=== PATIENT | male | born 1960 | race Caucasian/White ===

== ENCOUNTER 2019-04-03 18:29 | Inpatient (IN) | payer OTHER ==
[2019-04-03 19:16] VITALS: BMI 27.3
--- NOTE | 2019-04-03 20:54 | HP ---
COWS - Scale Resting Pulse: 0= [place] 80 or Below Sweatin= Beads of Sweat on Face Restless Observation: 1= Difficult to Sit Still Pupil Size: 0= Normal to Room Light Bone or Joint Aches: 4=Acute Joint/Muscle Pain Runny Nose/ Eye Tearin= None GI Upset > 30mins: 0= None Tremor Observation: 2= Slight Tremor Visible Yawning Observation: 1= 1-2x During Session Anxiety or Irritability: 2=Irritable/Anxious Goose Flesh Skin: 0=Smooth Skin COWS Score: 13 CIWA Score - Admission Criteria OASAS Guidelines: Admission for Medically Managed Detox: Requires at least one of the followin. CIWA greater than 12 2. Seizures within the past 24 hours 3. Delirium tremens within the past 24 hours 4. Hallucinations within the past 24 hours 5. Acute intervention needed for co occurring medical disorder 6. Acute intervention needed for co occurring psychiatric disorder 7. Severe withdrawal that cannot be handled at a lower level of care (continued vomiting, continued diarrhea, abnormal vital signs) requiring intravenous medication and/or fluids 8. Admitting History and Physical - Admission Chief Complaint: "my parole office requested that i go for a detox". History of Present Illness: A 58year old male who denies any medical history presents here today for heroin detox as requested by his recruitment officer. Pt states, he uses 1bundle of heroin daily by inhalation and last use 04/03/19. Pt reports that his last detox was over 6years ago. Pt's ekg is abnornal, to be repeated in AM. History Source: Patient Limitations to Obtaining History: No Limitations - Smoking History Smoking history: Current some day smoker Have you smoked in the past 12 months: Yes Aproximately how many cigarettes per day: 10 - Alcohol/Substance Use Hx Alcohol Use: No History of Substance Use: reports: Cocaine, Heroin - Social History Usual Living Arrangement: Yes: Other (Lives with mum) Do you think of yourself as: Straight/Heterosexual ADL: Independent History of Recent Travel: No Admission ROS [facility] Allergies/Adverse Reactions: Allergies Allergy/AdvReac Type Severity Reaction Status Date / Time No Known Allergies Allergy Verified 04/03/19 19:03 Exam Limitations: No Limitations - Ebola screening Have you traveled outside of the country in the last 21 days: No (N) Have you had contact with anyone from an Ebola affected area: No Have you been sick,other than usual withdrawal symptoms: No Do you have a fever: No - Review of Systems Constitutional: Night Sweats EENT: reports: Cataracts, Blurred Vision Respiratory: reports: No Symptoms reported Cardiac: reports: No Symptoms Reported GI: reports: No Symptoms Reported : reports: No Symptoms Reported, Burning, Dysuria, Urgency Musculoskeletal: reports: No Symptoms Reported Integumentary: reports: No Symptoms Reported Neuro: reports: Tremors Endocrine: reports: No Symptoms Reported Hematology: reports: No Symptoms Reported Psychiatric: reports: Judgement Intact, Mood/Affect Appropiate Other Systems: Reviewed and Negative Patient History - Patient Medical History Hx Anemia: No Hx Asthma: No Hx Chronic Obstructive Pulmonary Disease (COPD): No Hx Cancer: No Hx Cardiac Disorders: No Hx Congestive Heart Failure: No Hx Hypertension: No Hx Hypercholesterolemia: No Hx Pacemaker: No HX Cerebrovascular Accident: No Hx Seizures: No Hx Dementia: No Hx Diabetes: No Hx Gastrointestinal Disorders: No Hx Liver Disease: No Hx Genitourinary Disorders: No Hx Sexually Transmitted Disorders: No Hx Renal Disease (ESRD): No Hx Thyroid Disease: No Hx Human Immunodeficiency Virus (HIV): No Hx Hepatitis C: No Hx Depression: No Hx Suicide Attempt: No Hx Bipolar Disorder: No Hx Schizophrenia: No - Patient Surgical History Past Surgical History: No - PPD History Previous Implant?: Yes (pt states he ppd was positve 10years ago, can't recall last chest xray) Documented Results: Positive w/o proof Implanted On Prior R Admission?: No PPD to be Administered?: No - Smoking Cessation Smoking history: Current some day smoker Have you smoked in the past 12 months: Yes Aproximately how many cigarettes per day: 10 Hx Chewing Tobacco Use: No Initiated information on smoking cessation: Yes 'Breaking Loose' booklet given: 04/03/19 - Substances abused Heroin Substance route: Inhalation Frequency: Daily Amount used: 1 bundle Age of first use: 19 Date of last use: 04/03/19 Admission Physical Exam BHS - Vital Signs Vital Signs: Vital Signs - 24 hr 04/03/19 04/03/19 18:58 20:31 Temperature 97.8 F 97.8 F Pulse Rate 59 L 59 L Respiratory 20 20 Rate Blood Pressure 115/63 115/63 - Physical General Appearance: Yes: Within Normal Limits, Tremorous, Sweating, Anxious HEENTM: Yes: EOMI, Normocephalic, Normal Voice, Pharynx Normal, Tm's normal Respiratory: Yes: Chest Non-Tender, Lungs Clear, Normal Breath Sounds, No Respiratory Distress Neck: Yes: No masses,lesions,Nodules, Supple, Trachea in good position Breast: Yes: Within Normal Limits Cardiology: Yes: Regular Rhythm, Regular Rate, S1, S2 Abdominal: Yes: Normal Bowel Sounds, Non Tender, Soft Genitourinary: Yes: Within Normal Limits Back: Yes: Normal Inspection Musculoskeletal: Yes: Within Normal Limits Extremities: Yes: Tremors Neurological: Yes: Alert, Normal Mood/Affect, Normal Response Integumentary: Yes: Dry, Warm Lymphatic: Yes: Within Normal Limits - Diagnostic (1) Heroin use disorder, mild, abuse Status: Chronic Cleared for Admission [facility] - Detox or Rehab [facility] Level of Care: Medically Managed Detox Regimen/Protocol: Methadone Claeared for Rehab Admission: No Breathalyzer - Breathalyzer Breathalyzer: 0 Urine Drug Screen - Test Device Lot number: [id number] Expiration date: 10/24/20 - Control Is test valid?: Yes - Results Drug screen NEGATIVE: Yes Urine drug screen results: THC-Marijuana, [place]-Cocaine, FEN-Fentanyl, MOP-Opiates , MTD-Methadone Inpatient Rehab Admission - Rehab Decision to Admit Inpatient rehab admission?: No
[2019-04-03] MEDS ORDERED: METHOCARBAMOL 500 MG TABLET PO PRN (21:05)
[2019-04-03] MEDS ORDERED: IBUPROFEN 400 MG TABLET (FP) PO PRN ×2 (21:05→21:22)
[2019-04-03] MEDS ORDERED: hydrOXYzine PAMOATE 25 MG CAPSULE (FP) PO PRN ×2 (21:05→21:22)
[2019-04-03] MEDS ORDERED: cloNIDine HCL 0.1 MG TABLET PO PRN ×2 (21:05→21:24)
[2019-04-03] MEDS ORDERED: MENTHOL/PHENOL 1 EACH UD MM PRN ×2 (21:05→21:22)
[2019-04-03] MEDS ORDERED: ACETAMINOPHEN 325 MG TABLET (FP) PO PRN ×4 (21:05→21:22)
[2019-04-03] MEDS ORDERED: MELATONIN 5 MG TABLETS PO PRN ×2 (21:05→21:22)
[2019-04-03] MEDS ORDERED: MAGNESIUM CITRATE 300 ML BOTTLE PO PRN ×2 (21:05→21:22)
[2019-04-03] MEDS ORDERED: MAGNESIUM HYDROX 2400MG/30ML ORAL SUSPENSION 30 ML CUP PO PRN ×2 (21:05→21:22)
[2019-04-03] MEDS ORDERED: METHADONE HCL 10 MG TABLET (FOR DETOX USE ONLY) PO ONE ×2 (21:05→21:24)
[2019-04-03] MEDS ORDERED: MAG HYDROX/AL HYDROX/SIMETH 30 ML UNIT-DOSE CUP PO PRN ×2 (21:05→21:22)
[2019-04-03] MEDS ORDERED: BISMUTH SUBSALICYLATE 524 MG/30 ML UD PO PRN ×2 (21:05→21:22)
[2019-04-03] MEDS: THIAMINE HCL 100 MG TABLET (FP) PO SCH (21:48)
[2019-04-03] MEDS ORDERED: THIAMINE HCL 100 MG TABLET (FP) PO SCH (22:00)
[2019-04-04 09:44] LABS: HEMATOCRIT 40.6 % (35.4-49); HEMOGLOBIN 13.1 GM/dL (11.7-16.9); MCH 27.6 pg (25.7-33.7); MCHC 32.2 g/dl (32.0-35.9); MEAN CELL VOLUME 85.6 fl (80-96); MEAN PLT VOLUME 8.5 fl (7.5-11.1); PLATELET COUNT 209 K/MM3 (134-434); RBC 4.75 M/mm3 (4.00-5.60); RDW 14.4 % (11.9-15.9); WHITE BLOOD COUNT 6.4 K/mm3 (4.0-10.0)
[2019-04-04] MEDS ORDERED: NICOTINE 14 MG/24 HOURS TOPICAL PATCH TD SCH (10:00)
[2019-04-04] MEDS ORDERED: METHADONE HCL 5 MG TABLET (FOR DETOX USE ONLY) PO ONE ×2 (10:00)
[2019-04-04] MEDS ORDERED: PRENATAL VITAMINS W/ FOLIC ACID TABLET (FP) PO SCH (10:00)
[2019-04-04 10:05] LABS: ALBUMIN 3.3 g/dl (3.4-5.0); BILIRUBIN,TOTAL 0.5 mg/dL (0.2-1); CALCIUM 8.5 mg/dL (8.5-10.1); POTASSIUM 4.8 mmol/L (3.5-5.1); TOT PROT 6.6 g/dl (6.4-8.2)
[2019-04-04] MEDS ORDERED: P-EPHED 60MG/TRIPROLIDI 2.5MG TABLET PO PRN (10:07)
[2019-04-04] MEDS ORDERED: SODIUM CHLORIDE NASAL SPRAY 44 ML BOTTLE NS PRN (10:08)
[2019-04-04] MEDS: PRENATAL VITAMINS W/ FOLIC ACID TABLET (FP) PO SCH (10:19)
[2019-04-04] MEDS: NICOTINE 14 MG/24 HOURS TOPICAL PATCH TD SCH (10:20)
--- NOTE | 2019-04-04 10:20 | PN ---
[facility]HS COWS - Scale Resting Pulse: 0= [place] 80 or Below Sweatin=Flushed/Facial Moisture Restless Observation: 1= Difficult to Sit Still Pupil Size: 0= Normal to Room Light Bone or Joint Aches: 2= Severe Diffuse Aches Runny Nose/ Eye Tearin= Runny Nose/Eyes GI Upset > 30mins: 0= None Tremor Observation of Outstretched Hands: 1= Tremor [place], Not Seen Yawning Observation: 2= >3x During Session Anxiety or Irritability: 2=Irritable/Anxious Goose Flesh Skin: 0=Smooth Skin COWS Score: 12 S Progress Note (SOAP) Subjective: nasal congestions teary eyes body aches sweats chills irritable Objective: 04/04/19 10:20 Vital Signs Temperature 97.7 F 04/04/19 09:18 Pulse Rate 54 L 04/04/19 09:18 Respiratory Rate 18 04/04/19 09:18 Blood Pressure 119/81 04/04/19 09:18 O2 Sat by Pulse Oximetry (%) Laboratory Tests 04/04/19 04/04/19 08:00 08:00 WBC 6.4 RBC 4.75 Hgb 13.1 Hct 40.6 MCV 85.6 MCH 27.6 MCHC 32.2 RDW 14.4 Plt Count 209 MPV 8.5 Sodium 140 Potassium 4.8 Chloride 107 Carbon Dioxide 28 Anion Gap 5 L BUN 18.0 Creatinine 1.0 Est GFR (CKD-EPI)AfAm 95.06 Est GFR (CKD-EPI)NonAf 82.02 Random Glucose 77 Calcium 8.5 Total Bilirubin 0.5 AST 16 ALT 18 Alkaline Phosphatase 65 Total Protein 6.6 Albumin 3.3 L aaox3 ambulating no acute distress Assessment: 04/04/19 10:21 withdrawals Plan: continue detox ocean spray prn actifed prn
--- NOTE | 2019-04-04 11:14 | EKG ---
Test Reason : Blood Pressure : / mmHG Vent. Rate : 053 BPM Atrial Rate : 053 BPM P-R Int : 212 ms QRS Dur : 088 ms QT Int : 430 ms P-R-T Axes : 064 075 070 degrees QTc Int : 403 ms SINUS BRADYCARDIA WITH 1ST DEGREE A-V BLOCK OTHERWISE NORMAL ECG NO PREVIOUS ECGS AVAILABLE Confirmed by CELINA FIORE MD ([id number]) on 04/04/2019 11:13:32 AM Referred By: João Ingram Confirmed By:CELINA FIORE MD
--- NOTE | 2019-04-04 11:14 | EKG ---
Test Reason : Blood Pressure : / mmHG Vent. Rate : 046 BPM Atrial Rate : 046 BPM P-R Int : 206 ms QRS Dur : 078 ms QT Int : 450 ms P-R-T Axes : 070 067 058 degrees QTc Int : 393 ms SINUS BRADYCARDIA OTHERWISE NORMAL ECG WHEN COMPARED WITH ECG OF 03-APR-2019 22:17, NO SIGNIFICANT CHANGE WAS FOUND Confirmed by CELINA FIORE MD ([id number]) on 04/04/2019 11:13:51 AM Referred By: João Ingram Confirmed By:CELINA FIORE MD
[2019-04-04] MEDS: METHOCARBAMOL 500 MG TABLET PO PRN (16:44)
[2019-04-04] MEDS: THIAMINE HCL 100 MG TABLET (FP) PO SCH (21:54)
[2019-04-05] MEDS: NICOTINE 14 MG/24 HOURS TOPICAL PATCH TD SCH (09:42)
[2019-04-05] MEDS: PRENATAL VITAMINS W/ FOLIC ACID TABLET (FP) PO SCH (09:43)
[2019-04-05] MEDS ORDERED: METHADONE HCL 10 MG TABLET (FOR DETOX USE ONLY) PO ONE ×2 (10:00)
[2019-04-05] MEDS ORDERED: IBUPROFEN 600 MG TABLET (FP) PO PRN (10:10)
--- NOTE | 2019-04-05 10:12 | PN ---
BHS COWS - Scale Resting Pulse: 0= [place] 80 or Below Sweatin= Chills/Flushing Restless Observation: 1= Difficult to Sit Still Pupil Size: 0= Normal to Room Light Bone or Joint Aches: 2= Severe Diffuse Aches Runny Nose/ Eye Tearin= None GI Upset > 30mins: 0= None Tremor Observation of Outstretched Hands: 0= None Yawning Observation: 1= 1-2x During Session Anxiety or Irritability: 1=Feels Anxious/Irritable Goose Flesh Skin: 0=Smooth Skin COWS Score: 6 BHS Progress Note (SOAP) Subjective: back pain sweats Objective: 04/05/19 10:12 Vital Signs Temperature 97.3 F L 04/05/19 09:31 Pulse Rate 52 L 04/05/19 09:31 Respiratory Rate 18 04/05/19 09:31 Blood Pressure 150/84 04/05/19 09:31 O2 Sat by Pulse Oximetry (%) Laboratory Tests 04/04/19 04/04/19 04/04/19 08:00 08:00 08:00 WBC 6.4 RBC 4.75 Hgb 13.1 Hct 40.6 MCV 85.6 MCH 27.6 MCHC 32.2 RDW 14.4 Plt Count 209 MPV 8.5 Sodium 140 Potassium 4.8 Chloride 107 Carbon Dioxide 28 Anion Gap 5 L BUN 18.0 Creatinine 1.0 Est GFR (CKD-EPI)AfAm 95.06 Est GFR (CKD-EPI)NonAf 82.02 Random Glucose 77 Calcium 8.5 Total Bilirubin 0.5 AST 16 ALT 18 Alkaline Phosphatase 65 Total Protein 6.6 Albumin 3.3 L RPR Titer Nonreactive aaox3 lying in bed no acute distress Assessment: 04/05/19 10:12 withdrawals Plan: lidocaine patch motrin 600mg prn continue detox d/c in am
[2019-04-05] MEDS ORDERED: LIDOCAINE 5% TOPICAL PATCH TP SCH (10:15)
[2019-04-05] MEDS: METHOCARBAMOL 500 MG TABLET PO PRN ×2 (17:05→23:05)
[2019-04-05] MEDS ORDERED: LIDOCAINE PATCH REMOVAL MC SCH (22:00)
[2019-04-05] MEDS: THIAMINE HCL 100 MG TABLET (FP) PO SCH (22:12)
[2019-04-06] MEDS ORDERED: METHADONE HCL 5 MG TABLET (FOR DETOX USE ONLY) PO ONE ×2 (06:00)
--- NOTE | 2019-04-06 09:04 | DS ---
[facility] Detox Discharge Summary Admission Date: 04/03/19 Discharge Date: 04/06/19 - History Present History: Opioid Dependence - Physical Exam Results Vital Signs: Vital Signs Temperature 97.9 F 04/06/19 08:07 Pulse Rate 99 H 04/06/19 08:07 Respiratory Rate 04/06/19 08:07 Blood Pressure 141/69 04/06/19 08:07 O2 Sat by Pulse Oximetry (%) Pertinent Admission Physical Exam Findings: Vital Signs Temperature 97.9 F 04/06/19 08:07 Pulse Rate 99 H 04/06/19 08:07 Respiratory Rate 04/06/19 08:07 Blood Pressure 141/69 04/06/19 08:07 O2 Sat by Pulse Oximetry (%) Laboratory Tests 04/04/19 04/04/19 04/04/19 08:00 08:00 08:00 WBC 6.4 RBC 4.75 Hgb 13.1 Hct 40.6 MCV 85.6 MCH 27.6 MCHC 32.2 RDW 14.4 Plt Count 209 MPV 8.5 Sodium 140 Potassium 4.8 Chloride 107 Carbon Dioxide 28 Anion Gap 5 L BUN 18.0 Creatinine 1.0 Est GFR (CKD-EPI)AfAm 95.06 Est GFR (CKD-EPI)NonAf 82.02 Random Glucose 77 Calcium 8.5 Total Bilirubin 0.5 AST 16 ALT 18 Alkaline Phosphatase 65 Total Protein 6.6 Albumin 3.3 L RPR Titer Nonreactive aaox3 ambulating no acute distress - Treatment Hospital Course: Detox Protocol Followed, Detoxed Safely, Responded well, Discharged Condition Good, Rehab Referral Accepted Patient has Accepted a Rehab Referral to: pt declined rehab; referral provided - Medication Discharge Medications: Ambulatory Orders NK [No Known Home Medication] 04/03/19 - Diagnosis (1) Heroin use disorder, mild, abuse Current Visit: Yes Status: Chronic - AMA Did Patient Leave Against Medical Advice: No
[2019-04-06] MEDS: PRENATAL VITAMINS W/ FOLIC ACID TABLET (FP) PO SCH (09:57)
[2019-04-06] MEDS: NICOTINE 14 MG/24 HOURS TOPICAL PATCH TD SCH (09:58)
[2019-04-06 10:13] VITALS: BP 145/73; PULSE 61; TEMP 97.7
== END 2019-04-06 09:58 | disposition home or self-care (01) | DRG 773 ==
LOC: YASAS 18:29 → Y6N 21:01
PROVIDERS: ADMIT Allergy & Immunology; ATTEND Allergy & Immunology
PROC: HZ2ZZZZ Detoxification Services for Substance Abuse Treatment (ICD-10-PCS; principal; 2019-04-03)
DX: F11.23 Opioid dependence with withdrawal (principal); F17.210 Nicotine dependence, cigarettes, uncomplicated
CPT/HCPCS: 36415; 71046-TC-FY; 80053; 85027; 86593; 93005; 93010